=== PATIENT | male | born 1965 | race Asian ===

== ENCOUNTER 2017-11-07 18:31 | Emergency (ER) | payer OTHER ==
--- NOTE | 2017-11-07 19:43 | ED Physician Documentation ---
PD HPI BACK INJURY - Stated complaint Stated Complaint: BACK PX - History obtained from History obtained from: Patient - History of Present Illness Location: Left, Lower Type of injury: Twist (he has been doing lifting and bending a lot, with pain developed in lower back.) Where injury occurred: Work Timing - onset: How many days ago (few) Timing - details: Abrupt onset (he was carrying a computed and had onset of low back pain that has persisted with severe spasms at times. The back will hurt enough in spasms that he feels like his leg gives out. No persistent numbness nor weakness though.) Quality: Pain, Spasm. No: Tearing, Aching Improved by: Rest Worsened by: Moving. No: Palpating Associated symptoms: No: Fever, Numbness, Incontinent of urine, Unable to urinate Contributing factors: Work related Similar symptoms before: No diagnosis (has intermittent low back pains similarly without prior treatment, diagnosis.) Recently seen: Clinic (seen at [facility] with xrays of low back and given Rx for tramadol and Ibuprofen and prednisone. Not improved with those.) Review of Systems Constitutional: denies: Fever, Chills Cardiac: denies: Chest pain / pressure, Palpitations GI: denies: Abdominal Pain, Nausea, Vomiting, Diarrhea : denies: Incontinent Neurologic: denies: Focal weakness, Numbness PD PAST MEDICAL HISTORY - Past Medical History Past Medical History: No Neuro: None Musculoskeletal: None - Past Surgical History Past Surgical History: Yes General: Cholecystectomy, Colonoscopy Ortho: Other - Present Medications Home Medications: Ambulatory Orders Medication Instructions Recorded Confirmed Ibuprofen 1 tab PO Q8HR PRN 11/07/17 Oxycodone HCl/Acetaminophen 1 each PO Q6H PRN #20 tablet 11/07/17 [Percocet 5-325 mg Tablet] diazePAM [Diazepam] 5 mg PO TID PRN #20 tablet 11/07/17 predniSONE [Prednisone] 50 mg PO DAILY 11/07/17 traMADol [Ultram] 1 tab PO Q4HR PRN 11/07/17 - Allergies Allergies/Adverse Reactions: Allergies Allergy/AdvReac Type Severity Reaction Status Date / Time No Known Drug Allergies Allergy Verified 11/07/17 18:50 - Social History Does the pt smoke?: No Smoking Status: Never smoker Does the pt drink ETOH?: Yes Does the pt have substance abuse?: No - Immunizations Immunizations are current?: Yes PD ED PE NORMAL - Vitals Vital signs reviewed: Yes - General General: Alert and oriented X 3, Well developed/nourished, Other (sitting in wheelchair comfortably moderate, but hurts and grimaces with twisting or sitting forward. ) - Abdomen Abdomen: Soft, Non tender - Back Back: No CVA TTP, No spinal TTP, Other (tender left lower back without trigger point per se. ) - Derm Derm: Normal color, Warm and dry Results - Vitals Vitals: Oxygen O2 Source Room air Departure - Departure Disposition: Home, Self Care Clinical Impression: Acute lumbar myofascial strain Qualifiers: Encounter type: initial encounter Qualified Code(s): S39.012A - Strain of muscle, fascia and tendon of lower back, initial encounter Condition: Stable Record reviewed to determine appropriate education?: Yes Instructions: ED Low Back Pain Injury Prescriptions: diazePAM [Diazepam] 5 mg PO TID PRN #20 tablet PRN Reason: Spasms Oxycodone HCl/Acetaminophen [Percocet 5-325 mg Tablet] 1 each PO Q6H PRN #20 tablet PRN Reason: Pain Comments: Continue the prior prednisone steroids and ibuprofen nonsteroidal anti- inflammatories. Add diazepam if needed for spasms and stiffness. You can use oxycodone for worse pain. As things are improving he can go back to the tramadol for lesser pain as you get better. Limited activities for the next few days with no lifting bending or push pull. Heat and gentle stretching. Follow-up with your primary care at home in they likely will initiate some physical therapy. Forms: Activity restrictions Discharge Date/Time: 11/07/17 20:55
[2017-11-07] MEDS ORDERED: METHOCARBAMOL 500 MG TABLET PO STA (20:08)
[2017-11-07] MEDS ORDERED: KETOROLAC 60 MG/2 ML VIAL IM STA (20:08)
[2017-11-07] MEDS ORDERED: oxyCOD/ACETAMIN 5 MG/325 MG TABLET PO STA (20:08)
[2017-11-07 20:46] VITALS: BP 114/83
== END 2017-11-07 20:55 | disposition home or self-care (01) ==
LOC: ED 18:31
DX: S39.012A Strain of muscle, fascia and tendon of lower back, initial encounter (principal); X50.0XXA Overexertion from strenuous movement or load, initial encounter
CPT/HCPCS: 96372; 99283; 99284; A9270